=== PATIENT | female | born 1995 | race Two or more races ===

== ENCOUNTER 2020-03-27 15:47 | Inpatient (IN) | payer MEDICAID ==
--- NOTE | 2020-03-27 16:00 | NUR ---
MS RN OPENING NOTES RECEIVED PATIENT FROM AMBULANCE IN A STRETCHER FROM [place], PATIENT WAS RESTLESS, AGITATED, UNCOOPERATIVE, #22G,NO SIGNS OF REDNESS OR INFILTRATION, SIDE RAILS UP FOR SAFETY.
[2020-03-27] MEDS ORDERED: Z GUARD REMEDY 2 OZ OINT TP PRN (17:00)
[2020-03-27] MEDS ORDERED: KETOROLAC TROMETHAMINE INJ 30 MG/ML VIAL IV PRN (17:00)
[2020-03-27] MEDS ORDERED: MAGNESIUM HYDROXIDE 30 ML UDC PO PRN (17:00)
[2020-03-27] MEDS ORDERED: DEXTROSE 50%-WATER 50 ML DISP.SYRIN IV PRN (17:00)
[2020-03-27] MEDS ORDERED: MAG HYDROX/AL HYDROX/SIMETH 30 ML UDC PO PRN (17:00)
[2020-03-27] MEDS ORDERED: ZOLPIDEM TARTRATE 5 MG TABLET PO PRN (17:00)
[2020-03-27] MEDS ORDERED: ACETAMINOPHEN 325 MG TABLET PO PRN (17:00)
[2020-03-27] MEDS: IV NS 0.9% 1,000 ML IV PRN (17:02)
[2020-03-27] MEDS: INSULIN LISPRO/ASPART 100 UNIT/ML CARTRIDGE SQ SCH (17:30)
[2020-03-27] MEDS: BLOOD SUGAR DIAGNOSTIC 1 EACH STRIP IN SCH ×2 (17:45→20:58)
--- NOTE | 2020-03-27 18:27 | NUR ---
MS RN NOTES PATIENT REFUSED LANTUS MEDICATION. SHE VERBALIZED THAT SHE DOESN'T WANT TO EAT.
--- NOTE | 2020-03-27 18:45 | NUR ---
MS RN NOTES PATIENT WAS UNCOOPERATIVE WHEN I WAS TRYING TO INTERVIEW HER FOR HER ADMISSION ASSESSMENT.
--- NOTE | 2020-03-27 19:00 | NUR ---
MS RN CLOSING NOTES [facility]ED [facility], RESTLESS, AGITATED, UNCOOPERATIVE, IVF NS AT 125LPM #22G, INFUSING WELL, NO SIGNS OF REDNESS OR INFILTRATION, SIDE RAILS UP FOR SAFETY.
--- NOTE | 2020-03-27 19:10 | NUR ---
MS/RN OPENING NOTES: RECEIVED PT. IN BED. A/O X3. VERBALLY RESPONSIVE AND ABLE TO MAKE NEEDS KNOWN. NO SOB NOTED. NO S/S OF DISTRESS. NO C/O PAIN AT THIS TIME. PER DAY SHIFT RN AMNA'S REPORT, PT. IS VERY UNCOOPERATIVE DURING ADMISSION. PT. SKIN IS INTACT, ON REGULAR DIET. ABLE TO AMBULATE WITH STEADY GAIT. IV SITE ON THE LEFT HAND #22G INTACT AND PATENT, INFUSING NS @ 125MLS/HR. SAFETY MEASURE IN PLACE. BED IN LOW, LOCKED POSITION WITH SR UP X2. CALL LIGHT WITHIN REACH. WILL CONTINUE TO MONITOR.
[2020-03-27 20:00] VITALS: BP 124/78
[2020-03-27] MEDS: ONDANSETRON HCL/PF 4 MG/2 ML VIAL IVP PRN (20:05)
--- NOTE | 2020-03-27 20:05 | NUR ---
MS/RN NOTES: PT HAD NAUSEA AND VOMITING. EMESIS PRESENT. BROWN COLOR. TOTAL OF 200MLS. CHECKED BLOOD SUGAR LEVELS FIRST, 174. ADMINISTERED 4MG OF ZOFRAN IVP. VSS. WILL CONTINUE TO MONITOR.
--- NOTE | 2020-03-27 20:35 | NUR ---
MS/RN NOTES: PT. STATES SHE FEELS BETTER NOW. "I TASTED THE OCEAN WHEN YOU GAVE THE ZOFRAN". NO EMESIS NOTED. PT STATES SHE DOESN'T FEEL NAUSEATED NOW.
[2020-03-27] MEDS: INSULIN REGULAR, HUMAN 100 UNIT/ML 3 ML VIAL SQ PRN (20:59)
--- NOTE | 2020-03-27 21:03 | NUR ---
MS/RN NOTES: PT. BS CHECK IS 174. REFUSES REG INSULIN 4 UNITS. SAYS "WHY CAN'T YOU UNDERSTAND ME LADY? I FEEL NAUSEOUS RIGHT NOW". INFORMED PT THAT SHE JUST RECEIVED ZOFRAN AT 2004. PT STATES " I WANT TO THROW UP BECAUSE I FEEL GROSS AND I HAVE TO STICK MY FINGER IN MY MOUTH SO I CAN THROW UP". PT. WANTS TO BE LEFT ALONE.
--- NOTE | 2020-03-27 21:16 | NUR ---
MS/RN NOTES: PT. STARTED CALLING RN FOR HELP. WENT TO THE PT'S ROOM TO ATTEND TO NEEDS. PT. STARTED YELLING AT STAFF, STATES "I DON'T WANT ANY MEDICATION. WHAT'S THE POINT OF TAKING ALL OF THIS?" PROCEEDS TO SAY A LOT OF INAPPROPRIATE WORDS TO STAFF AND ACCUSING US OF JUDGING HER. EXPLAINED TO PT WE UNDERSTAND HER PAIN. PT. CONTINUES TO YELL AND WANTS STAFF TO BE OUT OF THE ROOM. WILL CONTINUE TO MONITOR BEHAVIOR.
[2020-03-27] MEDS: INSULIN GLARGINE, 100 UNIT/ML CARTRIDGE SQ SCH (22:00)
--- NOTE | 2020-03-27 22:00 | NUR ---
MS/RN NOTES: PT. REFUSES ACCUCHECK AND INSULIN LANTUS 20 UNITS AT THIS TIME. INFORMED BAOUT RISKS AND BENEFITS 3X. STILL REFUSED. WILL KEEP MONITORING.
[2020-03-28] MEDS: BLOOD SUGAR DIAGNOSTIC 1 EACH STRIP IN SCH ×6 (00:37→20:55)
[2020-03-28] MEDS: INSULIN REGULAR, HUMAN 100 UNIT/ML 3 ML VIAL SQ PRN ×4 (00:41→21:01)
--- NOTE | 2020-03-28 01:20 | NUR ---
MS/RN NOTES: ABLE TO GET PT.'S BLOOD SUGAR CHECK. 181. PT. AGREED TO GET REGULAR INSULIN. ADMINISTERED 4UNITS OF INSULIN PER SLIDING SCALE. PT. ASKED FOR AN ORANGE JUICE. WILL KEEP MONITORING.
--- NOTE | 2020-03-28 01:40 | NUR ---
MS/RN NOTES: UPDATED DR. CHAIREZ ON PT'S NAUSEA AND VOMITING AND PT.'S COMPLAIN OF ZOFRAN NOT HELPING. OBTAINED AN ORDER FOR REGLAN 10MG IVPX1 FOR NAUSEA. WILL CALL PHARMACY TO VERIFY.
[2020-03-28] MEDS: IV NS 0.9% 1,000 ML IV PRN (01:47)
[2020-03-28] MEDS ORDERED: METOCLOPRAMIDE HCL 10 MG/2 ML VIAL IV SCH (02:00)
--- NOTE | 2020-03-28 02:00 | NUR ---
MS/RN NOTES: ASKED PT. IF SHE WANTS TO RECEIVE REGLAN IVP 10MG FOR NAUSEA. PT. DECLINED AND STATED "I DON'T WANT NOTHING AT ALL LADY. I DON'T WANNA GO THROUGH THE NAUSEA AGAIN. I JUST WANNA REST. OR MAYBE DO AN EMERGENCY SURGERY ON ME NOW!!! THESE MEDICATIONS ARE NOT HELPING, MAYBE I NEED SURGERY". PT. IS STABLE FOR NOW. WILL CONTINUE TO MONITOR.
--- NOTE | 2020-03-28 03:19 | NUR ---
MS/RN NOTES: PATIENT IS CURRENTLY IN BED RESTING, NO S/S OF NAUSEA AND VOMITING. WILL KEEP MONITORING.
--- NOTE | 2020-03-28 05:47 | NUR ---
MS/RN NOTES: ATTEMPTED MRSA SWAB AND EDUCATED ABOUT RISKS AND BENEFITS, PT REFUSED MULTIPLE TIMES. PT ALSO REFUSED ACCUCHECK FOR 5AM AND REFUSED LAB DRAW. PER PT "GO AWAY!!! WHAT'S THE POINT OF THIS? LEAVE ME ALONE, I WANNA SLEEP OR I WILL THROW UP!!!!" GILL NET STRINGER, AND ANOTHER RN PRESENT WITNESS AT BEDSIDE. WILL CONTINUE TO MONITOR AND ENDORSE TO DAY SHIFT TO TRY AGAIN LATER.
--- NOTE | 2020-03-28 06:29 | NUR ---
MS/RN NOTES: TEST URINE COLLECTION, PT. REFUSES AT THIS TIME. PER PT "STOP BOTHERING ME, CAN YOU LET ME REST LADY???" WILL ENDORSE TO DAY SHIFT TO TRY AGAIN
--- NOTE | 2020-03-28 06:54 | NUR ---
MS/RN CLOSING NOTES: PT. IN BED. A/O X3-4. NO SIGNIFICANT CHANGES IN CONDITION. ON ROOM AIR. SATURATING WELL. NO SOB NOTED. NO S/S OF DISTRESS. NO C/O PAIN AT THIS TIME. PT. IS VERY UNCOOPERATIVE WITH PLAN OF CARE. REFUSES PAIN MEDS, ANTIEMETICS, BLOOD SUGAR CHECKS AND INSULINS. IV SITE ON THE LEFT HAND #22G INTACT AND PATENT, INFUSING NS @ 125MLS/HR. SAFETY MEASURE IN PLACE. BED IN LOW, LOCKED POSITION WITH SR UP X2. CALL LIGHT WITHIN REACH. WILL ENDORSE TO DAY SHIFT RN FOR JUAN.
[2020-03-28] MEDS: INSULIN LISPRO/ASPART 100 UNIT/ML CARTRIDGE SQ SCH ×3 (07:30→17:22)
--- NOTE | 2020-03-28 07:41 | NUR ---
MS RN NOTES RECEIVED PATIENT IN BED RESTING COMFORTABLY. PATIENT IN NO ACUTE DISTRESS. NO SOB NOTED. PATIENT BREATHING IS EVEN AND UNLABORED. PATIENT BED ALARM IS ON. SAFETY PRECAUTIONS IN PLACE. PATIENT BED IS LOCKED AND IN LOWEST POSITION. CALL LIGHT WITHIN REACH. WILL CONTINUE TO MONITOR.
[2020-03-28 08:00] VITALS: BP 113/76
--- NOTE | 2020-03-28 08:09 | NUR ---
MS RN NOTE PATIENT BLOOD SUGAR IS 158. PATIENT REFUSING TO HAVE SCHEDULED 5 UNITS HUMALOG INSULIN AND REFUSING 2 UNITS REGULAR INSULIN PRN. EDUCATED RISKS VS BENEFITS. PATIENT STATES " I DO NOT WANT INSULIN, LIKE I TOLD THE OTHER NURSE IT MAKES ME FEEL SICK AND NAUSEATED WHEN I GET INSULIN". PATIENT IN NO ACUTE DISTRESS. WILL CONTINUE TO MONITOR.
--- NOTE | 2020-03-28 08:46 | NUR ---
MS RN NOTE PATIENT REFUSING TO HAVE LABS DRAWN THIS AM. PATIENT STATED AND YELLED " CAN YOU JUST LET ME REST, I DONT WANT TO BE BOTHERED. I JUST WANT TO SLEEP WHAT DONT YOU GET". EDUCATED RISK VS BENEFITS. PATIENT CONTINUED TO REFUSE.
[2020-03-28] MEDS ORDERED: CEFTRIAXONE 1 G in IV D5W 50 ML IV SCH (10:00)
[2020-03-28] MEDS ORDERED: CEFTRIAXONE 2 G in IV D5W 100 ML IV SCH (10:00)
--- NOTE | 2020-03-28 11:00 | NUR ---
MS RN NOTE PATIENT REFUSING TO DO MRSA SWAB AND COMPLY TO GIVE URINE SAMPLE FOR TEST. EDUCATED RISKS VS BENEFITS. PATIENT YELLED AND STATED " NO PLEASE I DONT WANT TO DO THAT IM TIRED OF YOU GUYS ASKING". PATIENT CONTINUED TO REFUSE.
--- NOTE | 2020-03-28 11:17 | NUR ---
MS RN NOTE PATIENT FEELING NAUSEAS BUT REFUSING ANY FORM OF ANTI NAUSEA MEDICATIONS PRN. EDUCATED RISKS VS BENEFITS. PATIENT CONTINUES TO REFUSE.
[2020-03-28 11:34] LABS: BASOPHILS # (AUTO) 0.1 /CMM (0.0-0.2); BASOPHILS % (AUTO) 1.2 % (0.0-2.0); EOSINOPHILS % (AUTO) 2.2 % (0.0-6.0); HEMATOCRIT 39 % (33-45); HEMOGLOBIN 13.4 g/dL (11.5-14.8); MEAN CORPUSCULAR HGB CONC 34 g/dl (31.0-36.0); MEAN CORPUSCULAR VOLUME 92 fL (82-100); MONOCYTES # (AUTO) 0.3 /CMM (0.1-1.30); MONOCYTES % (AUTO) 5.4 % (2.0-12.0); NEUTROPHILS # (AUTO) 2.3 /CMM (1.8-8.9); NEUTROPHILS % (AUTO) 48.2 % (43.0-81.0); PLATELET COUNT (AUTO) 309 /CMM (150-450); RED BLOOD CELL COUNT(AUTO) 4.24 MIL/uL (4.0-5.2); WHITE BLOOD COUNT (AUTO) 4.7 K/uL (4.3-11.0)
[2020-03-28 11:49] LABS: CALCIUM, SERUM 8.4 mg/dL (8.5-10.1); CREATININE 0.4 mg/dL (0.6-1.3); MAGNESIUM 1.7 mg/dL (1.8-2.4); PHOSPHORUS 3.6 mg/dL (2.5-4.9); POTASSIUM 3.3 mmol/L (3.5-5.1)
[2020-03-28] MEDS ORDERED: HALOPERIDOL LACTATE INJ 5 MG/ML VIAL IM ONE (12:30)
[2020-03-28] MEDS ORDERED: OLANZAPINE 10 MG VIAL IM ONE (12:30)
[2020-03-28] MEDS ORDERED: OLANZAPINE 5 MG/TAB.RAPDIS PO PRN (12:30)
--- NOTE | 2020-03-28 12:33 | NUR ---
MS RN NOTE PATIENT IS YELLING AND SCREAMING AT STAFF. DR. DOBBINS WENT TO SEE AND EVALUATED PATIENT. PATIENT YELLED AND STATED " FUCK YOU, GET OUT OF HERE YOUR NOT HELPFUL, NOTHING IS HELPFUL". BYRON JOHNSON SEEN AND EVALUATED PATIENT. EDUCATED RISKS AND BENEFITS IN COMPLIANCE TO PLAN OF CARE. PATIENT CONTINUES TO YELL AND SCREAM AT STAFF DESPITE US TRYING TO HELP HER.
--- NOTE | 2020-03-28 12:53 | NUR ---
MS RN NOTE PATIENT BLOOD SUGAR IS 191. PATIENT REFUSING TO HAVE SCHEDULED 5 UNITS HUMALOG INSULIN AND REFUSING 4 UNITS REGULAR INSULIN PRN. EDUCATED RISKS VS BENEFITS. STATED IMPORTANCE OF COMPIANCE. PATIENT STATES " I DO NOT WANT INSULIN, I TOLD YOU THIS. IT MAKES ME FEEL WORST I WANT TO GET BETTER NOW". EDUCATED MEDICATION ADMINISTRATION. PATIENT CONTINUES TO REFUSE. PATIENT IN NO ACUTE DISTRESS. WILL CONTINUE TO MONITOR.
[2020-03-28] MEDS: Magnesium 1GM/D5W 100ML PREMIX 100 ML IV SCH ×2 (13:16→14:47)
[2020-03-28] MEDS: MEROPENEM 1 G in IV NS 0.9% 100 ML IV SCH ×2 (14:17→20:52)
[2020-03-28] MEDS: Potassium Chloride 20 MEQ in IV NS 0.9% 1,000 ML IV PRN (14:17)
--- NOTE | 2020-03-28 17:25 | NUR ---
MS RN NOTE ATTEMPTED TO OBTAIN BLOOD SUGAR FROM PATIENT. PATIENT REFUSED 1700 BLOOD SUGAR CHECK AND AFTERNOON VITAL SIGNS. PATIENT GETS ANGRY AND STATES " GET OUT CANT YOU TELL, IM NOT DOING WELL. I JUST WANT TO SLEEP WITHOUT EVERYONE BOTHERING ME. YOU GUYS ARE SO ANNOYING. I DONT WANT ANY MEDICATIONS OR FOR YOU TO CHECK MY BLOOD SUGAR". SINCE I CAN NOT CHECK BLOOD SUGAR SINCE PATIENT REFUSED, PATIENT IS ALSO REFUSING 5 UNITS HUMALOG INSULIN. PATIENT STATED SHE IS NAUSEAS. OFFERED ANTINAUSEA MEDICATION PRN BUT PATIENT REFUSED AND STATED SHE DOES NOT WANT ANY MEDICATION FOR NAUSEA. EDUCATED RISKS VS BENEFITS. PATIENT CONTINUED TO REFUSE.
--- NOTE | 2020-03-28 18:21 | NUR ---
MS RN NOTE PATIENT REFUSING TO ASSIST ME OBTAINING HER HEIGHT TO INPUT IN HER CHART. PATIENT STATES " I JUST WOULD LIKE TO REST RIGHT NOW AND NOT BE BOTHERED". EDUCATED IMPORTANCE TO OBTAIN INFORMATION. PATIENT CONTINUED TO REFUSE. WILL ENDORSE TO NEXT SHIFT TO ATTEMPT.
--- NOTE | 2020-03-28 19:10 | NUR ---
MS RN CLOSING NOTES PATIENT IN BED RESTING COMFORTABLY. PATIENT IN NO ACUTE DISTRESS. NO SOB NOTED. PATIENT BREATHING IS EVEN AND UNLABORED. PATIENT KEPT CLEAN AND DRY MUCH PATIENT WOULD ALLOW US TO HELP. PATIENT HAS BEEN NONCOMPLIANT WITH PLAN OF CARE THROUGHOUT SHIFT DESPITE EDUCATION OF RISKS VS BENEFITS. PATIENT BED ALARM IS ON. SAFETY PRECAUTIONS IN PLACE. PATIENT BED IS LOCKED AND IN LOWEST POSITION. CALL LIGHT WITHIN REACH. WILL ENDORSE CARE TO PM SHIFT FOR JUAN.
--- NOTE | 2020-03-28 19:20 | NUR ---
MS/RN OPENING NOTES: RECEIVED PT. IN BED RESTING COMFORTABLY. A/O X3. VERBALLY RESPONSIVE AND ABLE TO MAKE NEEDS KNOWN. NO SOB NOTED. NO S/S OF DISTRESS. NO C/O PAIN AT THIS TIME. PT. IS VERY UNCOOPERATIVE DURING ADMISSION. PT. SKIN IS INTACT, ON REGULAR DIET. ABLE TO AMBULATE WITH STEADY GAIT. IV SITE ON THE LEFT HAND #22G INTACT AND PATENT, INFUSING K+CL 20 MEQ @ 100MLS/HR. SAFETY MEASURES IN PLACE. BED IN LOW, LOCKED POSITION WITH SR UP X2. BED ALARM ON. CALL LIGHT WITHIN REACH. WILL CONTINUE TO MONITOR.
[2020-03-28 20:00] VITALS: BP 140/82
--- NOTE | 2020-03-28 21:02 | NUR ---
MS/RN NOTES: PT.'S BLOOD SUGAR CHECK IS 170. PT REFUSES REGULAR INSULIN 4 UNITS. AND REFUSES INSULIN LANTUS 20U. EXPLAINED TO PT ABOUT RISKS AND BENEFITS X3. PT STILL REFUSED. WILL CONTINUE TO MONITOR.
[2020-03-28] MEDS: INSULIN GLARGINE, 100 UNIT/ML CARTRIDGE SQ SCH (21:40)
[2020-03-29] MEDS: BLOOD SUGAR DIAGNOSTIC 1 EACH STRIP IN SCH ×6 (01:00→21:00)
--- NOTE | 2020-03-29 01:00 | NUR ---
MS/RN NOTES: PT REFUSES ACCUCHECK. EXPLAINED TO PT ABOUT RISKS AND BENEFITS X3. PT STILL REFUSED. WILL CONTINUE TO MONITOR.
[2020-03-29] MEDS: Potassium Chloride 20 MEQ in IV NS 0.9% 1,000 ML IV PRN ×2 (01:56→14:30)
--- NOTE | 2020-03-29 04:57 | NUR ---
MS/RN NOTES: PT REFUSES ACCUCHECK. EXPLAINED TO PT ABOUT RISKS AND BENEFITS X3. PT STILL REFUSED. WILL CONTINUE TO MONITOR.
[2020-03-29] MEDS: MEROPENEM 1 G in IV NS 0.9% 100 ML IV SCH ×3 (05:01→21:41)
--- NOTE | 2020-03-29 06:00 | NUR ---
MS/RN NOTES: CUSTOMER PROGRAM MANAGER ENOC CAME TO DRAW BLOOD. PT. REFUSED DESPITE EXPLANATION OF RISKS AND BENEFITS. STILL NONCOMPLIANT. MD'S AWARE OF BEHAVIOR OF PATIENT. WILL CONTINUE TO MONITOR.
--- NOTE | 2020-03-29 06:46 | NUR ---
MS/RN NOTES: ER NURSE FROM [facility] (MALLY) CALLED REGARDING PT.'S URINE CULTURE RESULTING POSITIVE, MORE THAN 100,000 E COLI. CHARGE NURSE AWARE. WILL ENDORSE TO DAY SHIFT NURSE TO RELAY TO [facility] SENIOR CONSTRUCTION MANAGER DOCTOR.
--- NOTE | 2020-03-29 06:48 | NUR ---
MS/RN NOTES: PT. REFUSING ACCUCHECK. NON COMPLIANT. INFORMED ABOUT RISKS AND BENEFITS. STILL REFUSED. WILL CONTINUE TO MONITOR.
[2020-03-29] MEDS: INSULIN LISPRO/ASPART 100 UNIT/ML CARTRIDGE SQ SCH ×3 (07:30→17:04)
--- NOTE | 2020-03-29 07:34 | NUR ---
MS/RN CLOSING NOTES: PATIENT IN BED SLEEPING. PATIENT IN NO ACUTE DISTRESS. NO SOB NOTED. PATIENT BREATHING IS EVEN AND UNLABORED. NO COMPLAINS OF PAIN AT THIS TIME. NEEDS ATTENDED MUCH PATIENT WOULD ALLOW US TO HELP. PATIENT HAS BEEN NONCOMPLIANT WITH PLAN OF CARE THROUGHOUT THE SHIFT DESPITE EDUCATION OF RISKS AND BENEFITS. REFUSED ACCUCHECKS, DUE MEDICATIONS, AND LAB DRAWS. PATIENT BED ALARM IS ON. SAFETY PRECAUTIONS IN PLACE. PATIENT BED IS LOCKED AND IN LOWEST POSITION. CALL LIGHT WITHIN REACH. INFORMED RN ABOUT THE RESULTS FROM [facility] ABOUT URINE CULTURE. WILL ENDORSE CARE TO AM SHIFT NURSE FOR JUAN.
--- NOTE | 2020-03-29 08:00 | NUR ---
MS RN OPENING NOTES RECEIVED PATIENT IN BED SLEEPING IN BED. NO CARDIAC OR RESP DISTRESS NOTED. NO SOB NOTED. PATIENT BREATHING IS EVEN AND UNLABORED. SATURATING WELL ON ROOM AIR AT 98%. IV ACCESS NOTED ON L HAND G22. INTACT AND PATENT AND FLUSHING WELL. NO S/S OF INFECTION OR INFILTRATION NOTED. SAFETY PRECAUTIONS IN PLACE, PATIENT BED IS LOCKED AND IN LOWEST POSITION. CALL LIGHT WITHIN REACH. WILL CONT TO MONITOR.
--- NOTE | 2020-03-29 08:15 | NUR ---
REFUSED BREAKFAST/AGITATION PT REFUSED TO EAT BREAKFAST. SHE STATED THAT SHE IS NAUSEATED AND FEELS LIKE VOMITING. I OFFERED HER ZOFRAN IV PRN AND ZYDIS PRN THAT SHE CAN TAKE TO HELP WITH THE NAUSEA, HOWEVER, SHE YELLS AND SCREAMS AT ME AND WAS VERY AGITATED FOR SOME REASON EVEN THOUGH I WAS JUST ASKING HER IF SHE WOULD LIKE TO TAKE IT. SHE STATES, "WHY CANT YOU BITCHES UNDERSTAND?! I TOLD YOU, NONE OF THAT SHIT WORKS!. YOU PEOPLE ARE USELESS!."
[2020-03-29] MEDS ORDERED: ARIPIPRAZOLE 5 MG TABLET PO SCH (09:00)
--- NOTE | 2020-03-29 09:00 | NUR ---
REFUSED INSULIN AND ACCUCHECKS PT REFUSED FOR BS CHECKS THIS AM. ALSO REFUSED ACCU CHECK. EDUCATED PT REGARDING RISKS, CONSEQUENCES AND NEGATIVE OUTCOMES OF NON COMPLIANT BEHAVIORS. PT REPLIED 'LEAVE ME ALONE'.
[2020-03-29 09:20] VITALS: BP 122/69
[2020-03-29] MEDS: MORPHINE SULFATE INJ 2 MG/ML DISP.SYRIN IV PRN (10:08)
--- NOTE | 2020-03-29 11:00 | NUR ---
C/O L FLANK PAIN PT C/O L FLANK PAIN 06/21. AT FIRST SHE REQUESTED FOR PAIN MEDS, SO THEN I WENT TO GET IT, BUT WHEN I CAME BACK, SHE CHANGED HER MIND, STATING, "NO NEVERMIND. IM SCARED THAT WILL MAKE ME NAUSEOUS AGAIN." MORPHINE WASTED WITH ANOTHER RN.
--- NOTE | 2020-03-29 11:30 | NUR ---
SEEN BY DR. JOHNSON PT WAS SEEN BY DR. JOHNSON. PT WAS VERY AGITATED, YELLING AND SCREAMING AT MD AND NURSE. SHE STATES THAT SHE HAS N/V BUT SHE DOESNT WANT TO TAKE HER PRN ZOFRAN VIA IV. SHE STATES THAT IT MAKES HER MORE NAUSEOUS. SHE ALSO REQUESTED MD, THAT SHE WANTS SOMETHING HELP HER SLEEP AND RELAX. PER MD HE WILL ORDER ATIVAN AND HALDOL. MD ALSO ORDERED IV PROTONIX.
[2020-03-29] MEDS ORDERED: HALOPERIDOL LACTATE INJ 5 MG/ML VIAL IV ONE (12:00)
--- NOTE | 2020-03-29 12:00 | NUR ---
REFUSED INSULIN/ACCUCHECKS PT REFUSED INSULIN/ACCUCHECKS ONCE AGAIN, SHE YELLED AND SCREAMED AT ME WHEN I OOFERED IT. I TRIED TO EXPLAIN THE IMPORTANCE OF THESE INTERVENTIONS TO HELP HER GET BETTER. HOEVER, SHE STILL REFUSES.
[2020-03-29] MEDS: PANTOPRAZOLE 40 MG VIAL IV SCH (12:01)
[2020-03-29] MEDS: LORAZEPAM INJ 2 MG/ML VIAL IV PRN (12:01)
--- NOTE | 2020-03-29 13:45 | NUR ---
F/U FOR UACS ASKED DR. JOHNSON IF HE WOULD LIKE TO ORDER UACS. PER DR. JOHNSON NOT NEEDED. SINCE SHE IS ALREADY ON ATB. NOTIFIED DR. JOHNSON OF >100,000 COLONIES OF E.COLI IN PTS URINE CULTURE DONE AT [facility]. PER MD SINGH.
[2020-03-29 14:52] LABS: BASOPHILS # (AUTO) 0.1 /CMM (0.0-0.2); EOSINOPHILS % (AUTO) 0.6 % (0.0-6.0); HEMATOCRIT 41 % (33-45); HEMOGLOBIN 14.1 g/dL (11.5-14.8); LYMPHOCYTES # (AUTO) 1.8 /CMM (0.8-4.8); MEAN CORPUSCULAR HGB CONC 34 g/dl (31.0-36.0); MEAN CORPUSCULAR VOLUME 93 fL (82-100); MONOCYTES # (AUTO) 0.3 /CMM (0.1-1.30); MONOCYTES % (AUTO) 5.2 % (2.0-12.0); NEUTROPHILS # (AUTO) 4.4 /CMM (1.8-8.9); NEUTROPHILS % (AUTO) 66.2 % (43.0-81.0); PLATELET COUNT (AUTO) 283 /CMM (150-450); RED BLOOD CELL COUNT(AUTO) 4.46 MIL/uL (4.0-5.2); WHITE BLOOD COUNT (AUTO) 6.7 K/uL (4.3-11.0)
[2020-03-29 15:08] LABS: CALCIUM, SERUM 8.5 mg/dL (8.5-10.1); CREATININE 0.5 mg/dL (0.6-1.3); MAGNESIUM 1.7 mg/dL (1.8-2.4); POTASSIUM 4.2 mmol/L (3.5-5.1)
--- NOTE | 2020-03-29 17:01 | NUR ---
REFUSED ACCUCHECK/INSULIN PT REFUSING ACCUCHECK AND INSULIN ONCE AGAIN. I WOKE HER UP, TO LET HER KNOW ITS TIME FOR HER BS CHECKS AND INSULIN. PT GOT UPSET, YELLED AND SCREAMED AGAIN. SHE TOLD ME, "WTF!!! CANT YOU JUST LEAVE ME ALONE! IM TRYING TO FUCKIN' SLEEP!" EDUCATED PT RE: RISKS, CONSEQUENCES AND NEGATIVE OUTCOMES OF NON COMPLIANT BEHAVIORS. SHE REPLIED, "GET OUT OF HERE, WITH YOUR BULLSHIT!"
--- NOTE | 2020-03-29 17:30 | NUR ---
HOME MEDS PER PT, HER ONLY HOME MED IS METFORMIN, BUT STATES THAT SHE CANT REMEMBER THE DOSE AND THAT SHE IS SUPPOSED TO TAKE IT TWICE A DAY AT HOME BUT DOESNT REALLY GET TO FOLLOW THAT. I ASKED IF ANYBODY COULD BRINGF HER MEDS IN, SHE SAYS , "NO MAAM. I LIVE BY MYSELF. NOBODY'S GONNA BRING THAT SHIT HERE."
[2020-03-29] MEDS ORDERED: METF500T20 PO (17:38)
--- NOTE | 2020-03-29 17:45 | NUR ---
MENSTRUAL PERIOD PT STARTED HER MENSTRUAL PERIOD. PROVIDED PT WITH PADS.
--- NOTE | 2020-03-29 18:13 | NUR ---
MS RN CLOSING NOTES RECEIVED PATIENT IN BED SLEEPING IN BED. AROUSABLE. NO CARDIAC OR RESP DISTRESS NOTED. NO SOB NOTED. PATIENT BREATHING IS EVEN AND UNLABORED. SATURATING WELL ON ROOM AIR AT 98%. IV ACCESS NOTED ON L HAND G22. INTACT AND PATENT AND FLUSHING WELL. NO S/S OF INFECTION OR INFILTRATION NOTED. PT STARTED HER MENSTRUAL PERIOD TODAY. PROVIDED PADS. PT IS MUCH MORE CALM, SHE IS SLEEPING. SHE TOLD ME THAT HER NAUSEA IMPROVED AFTER WHAT DR. JOHNSON HAD ORDERED FOR HER. SAFETY PRECAUTIONS IN PLACE, PATIENT BED IS LOCKED AND IN LOWEST POSITION. CALL LIGHT WITHIN REACH. WILL ENDORSE TO NEXT SHIFT.
--- NOTE | 2020-03-29 19:43 | NUR ---
MS RN OPENING NOTES PATIENT SLEEPING IN BED, EASY TO AWAKEN. A/OX4, ABLE TO VERBALIZE NEEDS. STABLE ON RA. IV PRESENT ON LEFT HAND, SIZE 22, INTACT & PATENT WITH KCL 20 MEQ RUNNING AT 100ML/HR. SAFETY MEASURES IN PLACE AND PATIENT'S NEEDS MET. BED LOCKED, SIDE RAILS X2, CALL LIGHT WITHIN REACH. WILL CONTINUE TO MONITOR.
[2020-03-29 20:00] VITALS: BP 115/83
[2020-03-29] MEDS: INSULIN GLARGINE, 100 UNIT/ML CARTRIDGE SQ SCH (22:00)
--- NOTE | 2020-03-29 22:00 | NUR ---
MS RN NOTES PATIENT REFUSED ACCUCHECK AT THIS TIME. PATIENT STATED "NO, GO AWAY. I'M SLEEPING"
[2020-03-30] MEDS: BLOOD SUGAR DIAGNOSTIC 1 EACH STRIP IN SCH ×6 (01:24→22:18)
--- NOTE | 2020-03-30 05:25 | NUR ---
MS RN NOTES PATIENT REFUSED AM LABS AT THIS TIME. PATIENT STATED SHE WILL AGREE TO DRAW LABS AFTER BREAKFAST. WILL ENDORSE TO DAY SHIFT RN TO FOLLOW UP WITH LAB.
[2020-03-30] MEDS: MEROPENEM 1 G in IV NS 0.9% 100 ML IV SCH ×3 (05:34→22:18)
--- NOTE | 2020-03-30 05:38 | NUR ---
MS RN NOTES PATIENT REFUSED ACCUCHECK AT THIS TIME. PATIENT STATED "NO, STOP BUGGING ME".
--- NOTE | 2020-03-30 06:57 | NUR ---
MS RN CLOSING NOTES PATIENT SLEEPING IN BED, EASY TO AWAKEN. A/OX4. STABLE ON RA. NO S/S OF ACUTE RESPIRATORY DISTRESS OR C/O PAIN. IV PRESENT ON LEFT HAND, SIZE 22, INTACT & PATENT WITH KCL 20 MEQ RUNNING AT 100ML/HR. SAFETY MEASURES IN PLACE AND PATIENT'S NEEDS MET. BED LOCKED, SIDE RAILS X2, CALL LIGHT WITHIN REACH. WILL ENDORSE TO DAY SHIFT NURSE PLAN OF CARE.
[2020-03-30] MEDS: INSULIN LISPRO/ASPART 100 UNIT/ML CARTRIDGE SQ SCH ×3 (07:30→16:49)
--- NOTE | 2020-03-30 08:14 | NUR ---
MS RN NOTE PATIENT IS REFUSING BLOOD SUGAR CHECKS AND INSULIN HUMALOG 5 UNITS ORDERED THIS AM. AND THEREFORE CAN NOT ADMINISTER INSULIN ORDERED. EDUCATED RISKS VS BENEFITS. PATIENT CONTINUED TO REFUSE AND STATED "PLEASE LET ME GET SOME SLEEP AND LEAVE".
--- NOTE | 2020-03-30 08:37 | NUR ---
MS RN NOTE PATIENT REFUSING AM LABS AND REFUSING VITALS SIGNS FOR THE AM. EDUCATED PATIENT ON IMPORTANCE TO COMPLIANCE IN PLAN OF CARE. PATIENT CONTINUED TO REFUSE.
[2020-03-30] MEDS: Potassium Chloride 20 MEQ in IV NS 0.9% 1,000 ML IV PRN (12:09)
[2020-03-30] MEDS: PANTOPRAZOLE 40 MG VIAL IV SCH (12:10)
[2020-03-30] MEDS: INSULIN REGULAR, HUMAN 100 UNIT/ML 3 ML VIAL SQ PRN ×2 (12:11→16:50)
[2020-03-30] MEDS: ONDANSETRON HCL/PF 4 MG/2 ML VIAL IVP PRN (12:12)
--- NOTE | 2020-03-30 12:12 | NUR ---
MS RN NOTE PATIENT BLOOD SUGAR IS 181. PATIENT REFUSING TO HAVE SCHEDULED 5 UNITS HUMALOG INSULIN AND REFUSING 4 UNITS REGULAR INSULIN PRN. EDUCATED RISKS VS BENEFITS. STATED IMPORTANCE OF COMPIANCE. PATIENT STATES " I DO NOT WANT INSULIN, IT DOES NOT MAKE ME FEEL GOOD". EDUCATED MEDICATION ADMINISTRATION. PATIENT CONTINUES TO REFUSE. PATIENT IN NO ACUTE DISTRESS. WILL CONTINUE TO MONITOR.
--- NOTE | 2020-03-30 13:36 | NUR ---
MS RN NOTE PATIENT IS YELLING AT STAFF AND BECOMING AGITATED AT STAFF. PATIENT STATES "MAKE ME BETTER RIGHT AWAY. I DONT LIKE IT HERE AND EVERYTHING SUCKS. FUCK YOU GUYS I WANT TO BE BETTER ALREADY". I APPROACHED THE PATIENT CALMLY AND EDUCATED THE IMPORTANCE IN COMPLIANCE WITH PLAN OF CARE. PATIENT STATED "YOUR MAKING MY CHEST HURT AND MAKING ME FEEL MORE NAUSEATED". I OFFERED PAIN MEDICATIONS BUT PATIENT IS REFUSING ANY MEDICATIONS. EDUCATED RISKS VS BENEFITS. BYRON JOHNSON MADE AWARE. PATIENT CONTINUES TO REFUSE.
[2020-03-30 15:28] VITALS: BP 117/70
[2020-03-30] MEDS: MORPHINE SULFATE INJ 2 MG/ML DISP.SYRIN IV PRN (15:32)
[2020-03-30 16:43] VITALS: BP 123/86
--- NOTE | 2020-03-30 16:50 | NUR ---
MS RN NOTE PATIENT BLOOD SUGAR IS 157. PATIENT REFUSING TO HAVE SCHEDULED 5 UNITS HUMALOG INSULIN AND REFUSING 2 UNITS REGULAR INSULIN PRN. EDUCATED RISKS VS BENEFITS. STATED IMPORTANCE OF COMPLIANCE. PATIENT STATES " I DO NOT WANT INSULIN". EDUCATED MEDICATION ADMINISTRATION. PATIENT CONTINUES TO REFUSE. PATIENT IN NO ACUTE DISTRESS. WILL CONTINUE TO MONITOR.
[2020-03-30] MEDS: LORAZEPAM INJ 2 MG/ML VIAL IV PRN (17:01)
--- NOTE | 2020-03-30 17:03 | NUR ---
MS RN NOTE PATIENT STATING ANXIOUSNESS AND IS GETTING RESTLESS. ATIVAN PRN ORDERED GIVEN.
[2020-03-30] MEDS ORDERED: HALOPERIDOL LACTATE INJ 5 MG/ML VIAL IV ONE (18:00)
[2020-03-30 20:00] VITALS: BP 102/65
--- NOTE | 2020-03-30 20:00 | NUR ---
MS/RN OPENING NOTES RECEIVED PATIENT RESTING IN BED, ASLEEP BUT ABLE TO AWAKEN, PATIENT ABLE TO MAKE NEEDS KNOWN AND COOPERATIVE TO CARE, REQUESTED FOR SOME JUICES.AND ABLE TO COOPERATE WITH IV FLUIDS AND UNDERSTOOD IMPORTANCE OF ANTIBIOTIC, ALLOWS TO HAVE BLOOD SUGAR CHECK BUT REFUSE TO BE POKED WITH NEEDLE FOR INSULIN . REQUESTED TO HAVE MEDICATION LATER PATIENT WANTS TO SLEEP AND NOT BE DISTURBED. BED LOCKED, CALL LIGHTS WITHIN REACH. WILL MONITOR.IV SITE ON LEFT HAND PATENT AND WITH NO S/S OF INFILTRATION. PATIENT AMBULATORY AND ABLE TO DO SOME SELF CARE WITH ASSIST.
[2020-03-30] MEDS: INSULIN GLARGINE, 100 UNIT/ML CARTRIDGE SQ SCH (22:00)
--- NOTE | 2020-03-30 22:00 | NUR ---
MS/RN NOTES PATIENT REQUESTED FOR SOME JUICES, TOLERATED BUT WITH OCCASIONAL VOMITING EPISODE HOWEVER REFUSE TO HAVE ZOFRAN. PREFERS TO THROW UP AND THEN ABLE TO RELIEVE AFTERWARDS.
--- NOTE | 2020-03-30 22:22 | NUR ---
BS AT 131 HAD SOME CRANBERRY JUICE AND ATE SOME SNACKS.
[2020-03-30 23:03] LABS: BASOPHILS # (AUTO) 0.1 /CMM (0.0-0.2); BASOPHILS % (AUTO) 1.2 % (0.0-2.0); EOSINOPHILS % (AUTO) 1.1 % (0.0-6.0); HEMATOCRIT 40 % (33-45); HEMOGLOBIN 13.7 g/dL (11.5-14.8); LYMPHOCYTES # (AUTO) 2.6 /CMM (0.8-4.8); MEAN CORPUSCULAR HGB CONC 34 g/dl (31.0-36.0); MEAN CORPUSCULAR VOLUME 92 fL (82-100); MONOCYTES # (AUTO) 0.4 /CMM (0.1-1.30); MONOCYTES % (AUTO) 6.7 % (2.0-12.0); NEUTROPHILS # (AUTO) 2.6 /CMM (1.8-8.9); PLATELET COUNT (AUTO) 260 /CMM (150-450); RED BLOOD CELL COUNT(AUTO) 4.36 MIL/uL (4.0-5.2); WHITE BLOOD COUNT (AUTO) 5.7 K/uL (4.3-11.0)
[2020-03-30 23:21] LABS: CALCIUM, SERUM 8.6 mg/dL (8.5-10.1); CREATININE 0.6 mg/dL (0.6-1.3); MAGNESIUM 1.5 mg/dL (1.8-2.4); PHOSPHORUS 3.7 mg/dL (2.5-4.9); POTASSIUM 4.2 mmol/L (3.5-5.1)
[2020-03-31] MEDS: BLOOD SUGAR DIAGNOSTIC 1 EACH STRIP IN SCH ×6 (00:15→21:06)
--- NOTE | 2020-03-31 00:15 | NUR ---
MS/RN NOTES PATIENT BLOOD SUGAR CHECK EARLIER AND REFUSE TO HAVE ANOTHER ONE AT THIS TIME, WOULD LIKE TO HAVE IT AT IN AM. LEEP AND HAVE BEHAVIOR CHANGES BUT CONTROLLED.
--- NOTE | 2020-03-31 03:16 | NUR ---
MS/RN NOTES MD SCHOFIELD MADE AWARE REGARDING LATEST LOW MAGNESIUM LEVEL AT 1.5.
[2020-03-31] MEDS: Potassium Chloride 20 MEQ in IV NS 0.9% 1,000 ML IV PRN (03:41)
--- NOTE | 2020-03-31 03:47 | NUR ---
MS/RN NOTES RECEIVED ORDER FROM MD SCHOFIELD TO REPLACE LOW MAGNESIUM LEVEL OF 1.5 WITH ORDER TO GIVE 3 G MAG.
[2020-03-31] MEDS ORDERED: Magnesium 1GM/D5W 100ML PREMIX PIGGYBACK IV ONE (04:00)
--- NOTE | 2020-03-31 04:07 | NUR ---
MS/RN NOTED MAGNESIUM BAG NO. 1 INFUSING.
--- NOTE | 2020-03-31 05:07 | NUR ---
MS/RN NOTES MAGNESIUM 2ND BAG 1G INFUSING.
--- NOTE | 2020-03-31 05:53 | NUR ---
MS/RN NOTES MAGNESIUM 3RD BAG INFUSING
--- NOTE | 2020-03-31 05:57 | NUR ---
MS/RN NOTES PATIENT REFUSE TO HAVE BLOOD SUGAR BE TAKEN AT THIS TIME, TO FOLLOW UP .
[2020-03-31] MEDS: MEROPENEM 1 G in IV NS 0.9% 100 ML IV SCH ×3 (06:15→21:00)
--- NOTE | 2020-03-31 06:17 | NUR ---
MS/RN NOTES PATIENT STILL REFUSE TO HAVE BLOOD SUGAR BE TAKEN SHE WENT BACK TO SLEEP AND COVER HER SELF.
--- NOTE | 2020-03-31 06:34 | NUR ---
306-1MS/RN CLOSING NOTES PATIENT ABLE TO SLEEP DURING THE NIGHT, IV ANTIBIOTIC ADMINISTERED. MONITORED FOR ANY CHANGES. KEPT COMFORTABLE, MONITORED S/S OF HYPO/HYPERGLYCEMIA WITH BEHAVIOR OF NON COMPLIANCE IN DIABETES MANAGEMENT. ON NASAL CANULA. IV SITE PATENT. BED LOCKED, CALL LIGHTS WITHIN REACH,
--- NOTE | 2020-03-31 07:00 | NUR ---
MS RN OPENING NOTES RECEIVED PT RESTING IN BED, EASILY AWAKE, AO X3. PT ABLE TO VERBALIZE NEEDS. NO SOB NOTED. NO S/S OF ANY ACUTE DISTRESS NOTED. RESPIRATIONS ARE EVEN AND UNLABORED WITH EQUAL RISE AND FALL IN CHEST. IV ACCESS TO RAC G#22, INTACT, PATENT AND INFUSING [id number]@100ML/HR. BED IN LOWEST LOCKED, SIDE RAILS UP, BED ALARM ON, HOB ELEVATED TO SEMI FOWLERS POSITION, CALL LIGHTS WITHIN REACH. WILL MONITOR CONTINUE TO MONITOR
[2020-03-31 08:00] VITALS: BP 119/70
--- NOTE | 2020-03-31 09:51 | NUR ---
PT REFUSED BS CHECK THIS MORNING. PT EDUCATION WAS PROVIDED. PT VERBALIZED UNDERSTANDING. WILL CONTINUE TO MONITOR
--- NOTE | 2020-03-31 11:20 | NUR ---
PT WAS FOUND SELF INDUCING VOMIT. PT VOMITED LIGHT BROWN EMESIS OF 300ML. PT REFUSED ZOFRAN. PT EDUCATION PROVIDED. CHARGE NURSE AND DR JOHNSON MADE AWARE
[2020-03-31] MEDS: PANTOPRAZOLE 40 MG VIAL IV SCH (11:50)
[2020-03-31] MEDS: INSULIN LISPRO/ASPART 100 UNIT/ML CARTRIDGE SQ SCH ×2 (12:00→18:09)
--- NOTE | 2020-03-31 12:03 | NUR ---
PT NOT COMPLAINT WITH GLUCOSE TEST CHECK. AT THIS TIME, PT REQUESTED GLUCOSE TEST CHECK. BS IS 178. WILL CONTINUE CARE PER ORDER AND CONTINUE TO MONITOR
--- NOTE | 2020-03-31 12:06 | NUR ---
BS SUGAR 178, PT REFUSED COVERAGE. EDUCATION PROVIDED. PT VERBALIZE UNDERSTANDING. WILL CONTINUE TO MONITOR
--- NOTE | 2020-03-31 13:20 | NUR ---
PT REQUESTED TO BE DISCONNECTED FROM IVs FLUIDS (MERREM). PT STATED " I DO NOT WANT MEDS, CARE OR TREAMENT PROVIDED". PT EDUCATION PROVIDED. PT CONTINUED TO REFUSE CARE. CHARGE NURSE WAS MADE HERNANDEZ AND DR JOHNSON WAS MADE AWARE.
[2020-03-31 16:00] VITALS: BP 131/64
[2020-03-31] MEDS ORDERED: HALOPERIDOL LACTATE INJ 5 MG/ML VIAL IV ONE (16:00)
[2020-03-31] MEDS: MORPHINE SULFATE INJ 2 MG/ML DISP.SYRIN IV PRN (16:11)
[2020-03-31] MEDS: LORAZEPAM INJ 2 MG/ML VIAL IV PRN (16:15)
--- NOTE | 2020-03-31 16:20 | NUR ---
PT PLACED BLANKETS AND A PILLOW IN THE BATHROOM AND WAS SLEEPING ON. PT STATED "I AM ANXIOUS, FEEL COLD SLEEPING ON THE BED. DR JOHNSON MADE AWARE. PER DR JOHNSON, ADMINISTER MORPHINE AND ATIVAN. WHEN PT FALLS ASLEEP, ADMINISTER HALDOL. ORDERS CARRIED OUT. WILL CONTINUE TO MONITOR
--- NOTE | 2020-03-31 16:30 | NUR ---
PER DR JOHNSON ORDER, ADMINISTER HALDOL LACTATE INJ, 2.5MG IV ONCE WHEN PT IS ASLEEP. MEDICATION NOT ADMINISTERED DUE TO PATIENT BEING AWAKE. WILL CONTINUE TO MONITOR
--- NOTE | 2020-03-31 19:00 | NUR ---
MS RN CLOSING NOTES PT RESTING IN BED, PT REMAINED STABLE THROUGHOUT SHIFT, NON COMPLAINT TO CARE. PT KEPT CLEAN. SIDE RAILS UP, BED ALARM ON, HOB ELEVATED TO SEMI FOWLERS POSITION, CALL LIGHTS WITHIN REACH. WILL ENDORSE TO NIGHT NURSE
--- NOTE | 2020-03-31 19:30 | NUR ---
MS RN NOTES RECEIVED ON BED A/O X3,NO SOB,AMBULATORY.SALINE LOCK RIGHT AC INTACT AND PATENT.NS WITH 20MEQ INFUSING AT 100ML/HR RATE,SITE PATENT.IV MERREM NOT INFUSED BY DAY NURSE,PATIENT REFUSED,CLAIMED SHE DOESNT FEEL GOOD WITH IT.MD JOHNSON AWARE ACCORDING TO DAY NURSE.CALL LIGHT IN REACH,NEEDS ANTICIPATED.
[2020-03-31 20:00] VITALS: BP 107/65
[2020-03-31] MEDS ORDERED: OLANZAPINE 5 MG/TAB.RAPDIS PO SCH (20:00)
--- NOTE | 2020-03-31 21:00 | NUR ---
MS RN NOTES REFUSED DUE MERREM IV THIS TIME.
--- NOTE | 2020-03-31 21:00 | NUR ---
MS RN NOTES ACCU-CHECK BLOOD SUGAR CHECK 161,COVERED WITH HUMULIN R 4 PER AGGRESSIVE SLIDING SCALE,ALONG WITH LANTUS 20UNITS Q HS.SNACKS PROVIDED AT BEDSIDE.
[2020-03-31] MEDS: INSULIN GLARGINE, 100 UNIT/ML CARTRIDGE SQ SCH (21:13)
[2020-03-31] MEDS: INSULIN REGULAR, HUMAN 100 UNIT/ML 3 ML VIAL SQ PRN (21:15)
--- NOTE | 2020-03-31 21:50 | NUR ---
MS RN NOTES POTASSIUM LEVEL THIS TIME WAS 3.2.DR SCHOFIELD MADE AWARE,NO NEW ORDER NOTED.
[2020-03-31 22:07] LABS: BASOPHILS # (AUTO) 0.1 /CMM (0.0-0.2); BASOPHILS % (AUTO) 1.8 % (0.0-2.0); EOSINOPHILS % (AUTO) 1.5 % (0.0-6.0); HEMATOCRIT 42 % (33-45); HEMOGLOBIN 14.1 g/dL (11.5-14.8); LYMPHOCYTES # (AUTO) 2.6 /CMM (0.8-4.8); LYMPHOCYTES % (AUTO) 54.9 % (20.0-44.0); MEAN CORPUSCULAR HGB CONC 34 g/dl (31.0-36.0); MEAN CORPUSCULAR VOLUME 91 fL (82-100); MONOCYTES # (AUTO) 0.4 /CMM (0.1-1.30); MONOCYTES % (AUTO) 7.7 % (2.0-12.0); NEUTROPHILS # (AUTO) 1.6 /CMM (1.8-8.9); NEUTROPHILS % (AUTO) 34.1 % (43.0-81.0); PLATELET COUNT (AUTO) 297 /CMM (150-450); RED BLOOD CELL COUNT(AUTO) 4.55 MIL/uL (4.0-5.2); WHITE BLOOD COUNT (AUTO) 4.8 K/uL (4.3-11.0)
[2020-03-31 22:21] LABS: CALCIUM, SERUM 8.9 mg/dL (8.5-10.1); CREATININE 0.5 mg/dL (0.6-1.3); PHOSPHORUS 2.6 mg/dL (2.5-4.9); POTASSIUM 3.2 mmol/L (3.5-5.1)
--- NOTE | 2020-03-31 22:30 | NUR ---
MS RN NOTES FEELING IRRITATED ON RIGHT AC SALINE LOCK,REMOVED PER PATIENT REQUEST.
[2020-04-01] MEDS: MORPHINE SULFATE INJ 2 MG/ML DISP.SYRIN IV PRN (00:24)
--- NOTE | 2020-04-01 00:24 | NUR ---
MS RN NOTES PAIN MANAGEMENT C/O GENERALIZED PAIN,8/10 ON PAIN SCALE.MEDICATED WITH MORPHINE 2MG IVP ORDERED.
[2020-04-01] MEDS: BLOOD SUGAR DIAGNOSTIC 1 EACH STRIP IN SCH ×4 (01:30→12:45)
--- NOTE | 2020-04-01 01:30 | NUR ---
MS RN NOTES ACC-CHECK BLOOD SUGAR CHECK 234.HUMULIN R 8 UNITS ADMINISTER SQ PER AGGRESSIVE SLIDING SCALE,SNACKS PROVIDED AT BEDSIDE PER PATIENT REQUEST.
[2020-04-01] MEDS: INSULIN REGULAR, HUMAN 100 UNIT/ML 3 ML VIAL SQ PRN ×3 (01:31→12:51)
--- NOTE | 2020-04-01 04:00 | NUR ---
MS RN NOTES REMAINS AWAKE,TALKING WITH SOMEONE ON HER CELL PHONE
[2020-04-01] MEDS: MEROPENEM 1 G in IV NS 0.9% 100 ML IV SCH ×2 (05:00→13:00)
--- NOTE | 2020-04-01 05:00 | NUR ---
MS RN NOTES ACCU-CHECK BLOOD SUGAR CHECK 144,COVERED WITH HUMULIN R 2 UNITS PER SLIDING SCALE
--- NOTE | 2020-04-01 05:15 | NUR ---
MS RN NOTES NURSE WAS ABOUT TO HUNG MERREM IV SCHEDULED BUT REFUSED,SAYING SHE'S GOING HOME TODAY.
--- NOTE | 2020-04-01 06:34 | NUR ---
MS RN NOTES AWAKE,MOST OF THE NIGHT.REFUSED IV MERREM SCHEDULED.REFUSED BLOOD DRAW THIS MORNING.KE LEVEL 3.2, AWARE,ON NS WITH 20MEQ KCL AT 100ML/HR RATE VIA IV PUMP.VERY NEED THRU OUT SHIFT ASKING FOR LITTLE THINGS.POSSIBLE D/C HOME TODAY.IN NO ACUTE DISTRESS.
--- NOTE | 2020-04-01 07:00 | NUR ---
MS RN OPENING NOTES RECEIVED PT RESTING IN BED, EASILY AWAKEN, AO X3. PT ABLE TO VERBALIZE NEEDS. PER YOUTH [employer]ATION OFFICER NURSE, LLOYD, PT REFUSED AM LABS DRAWN. NO SOB NOTED. NO S/S OF ANY ACUTE DISTRESS NOTED. RESPIRATIONS ARE EVEN AND UNLABORED WITH EQUAL RISE AND FALL IN CHEST. IV ACCESS TO RFA G#22, INTACT AND PATENT. BED IN LOWEST LOCKED, SIDE RAILS UP, BED ALARM ON, HOB ELEVATED TO SEMI FOWLERS POSITION, CALL LIGHTS WITHIN REACH. WILL CONTINUE TO MONITOR
[2020-04-01] MEDS: INSULIN LISPRO/ASPART 100 UNIT/ML CARTRIDGE SQ SCH ×3 (07:30→11:38)
[2020-04-01 08:00] VITALS: BP 130/70
--- NOTE | 2020-04-01 08:00 | NUR ---
PT REFUSED ACCUCHEK THIS MORNING AND REFUSED ADMINISTRATION OF INSULIN LISPRO 5U, SQ AC. EDUCATION ON RISK AND BENEFITS PROVIDED. WILL CONTINUE TO MONITOR
--- NOTE | 2020-04-01 09:02 | NUR ---
PT GLUGOSE TEST CHECKED AT 0856, BS 176. INSULIN LISPRO 5 UNITS SQ AC ADMINISTERED PER ORDER. WILL CONTINUE TO MONITOR
[2020-04-01] MEDS ORDERED: BLOO1EAC70 MC (09:41)
[2020-04-01] MEDS ORDERED: INSU100C SQ (09:41)
[2020-04-01] MEDS ORDERED: [UNRECOGNIZED DRUG - CODE] MC (09:41)
[2020-04-01] MEDS ORDERED: INSU100V7 SQ (09:41)
[2020-04-01] MEDS ORDERED: CEFI200S PO (09:41)
[2020-04-01] MEDS ORDERED: LANC1COM7 (09:41)
[2020-04-01] MEDS ORDERED: IBUP-1953 PO (09:41)
--- NOTE | 2020-04-01 10:27 | NUR ---
Social service consult requested by MD for mental health resources. Per MD notes and chart review, pt is a 24-year-old female who presented to [facility] for evaluation of fever and right flank pain and found to have pyelonephritis. She also was hyperglycemic and is a juvenile diabetic. However she is unfamiliar with any medications that she takes with exception of metformin. Her knowledge of her disease process is significantly lacking. Pt was psychotic and uncooperative for most part of her hospitalization. FIRE LIEUTENANT MARINE met with the pt who was sitting in a chair outside her room. SW introduced self and purpose of the visit. Pt is alert and oriented x 4. Pt is a poor historian and not very forthcoming with information. Pt did not disclose if she has a mental health illness and stated, " why does everybody asks me that." Pt did state she was receiving mental health services and attending group therapy in [place] but is interested in services in [facility]. FIRE LIEUTENANT MARINE provided pt with contact information to [facility] caters to [employer] [facility]. Pt accepted the resources and was appreciative. FIRE LIEUTENANT MARINE provided active listening and supportive counseling. Pt will be discharging today and going home with her family.
[2020-04-01] MEDS: PANTOPRAZOLE 40 MG VIAL IV SCH (11:40)
[2020-04-01] MEDS: LORAZEPAM INJ 2 MG/ML VIAL IV PRN (12:26)
--- NOTE | 2020-04-01 12:27 | NUR ---
PT C/O ANXIETY AND REQUESTED ATIVAN. ATIVAN 2MG IV PRN Q12HRS. ADMINISTERED PER PROTOCOL. WILL CONTINUE TO MONITOR
--- NOTE | 2020-04-01 13:31 | NUR ---
PT REFUSED MERREM 1G IV Q8HRS, EDUCATION ON BENEFITS AND RISKS PROVIDED. WILL CONTINUE TO MONITOR
--- NOTE | 2020-04-01 14:20 | NUR ---
MS RESPIRATORY THERAPY TECHNICIAN NOTES PT DISCHARGED TO HOME AT THIS TIME. PT IS STABLE. VS STABLE. PT EDUCATION PROVIDED. PT VERBALIZED UNDERSTANDING TO BENIFITS, RISK AND COMPLIANCE TO DISCHARGE TEACHINGS. ALL CARE, MEDICATIONS AND NEEDS ADMINISTERED PER ORDER. IV ACCESS REMOVED, CLEAN AND DRESSED. NO SIGNS OF INFILTRATION OR BLEEDING NOTED. ALL BELONGINGS ACCOUNTED FOR AND DOCUMENTED IN CHART. PT ACCOMPANIED TO LOBBY BY VINICIUS HAMILTON. PT PICKED UP BY [facility] TO HOME.
== END 2020-04-01 14:25 | disposition home or self-care (01) | DRG 463 ==
LOC: MED 15:47
PROVIDERS: ADMIT Nurse Practitioner Acute Care; ATTEND Nurse Practitioner Acute Care
DX: N10 Acute pyelonephritis (principal); K31.84 Gastroparesis; E10.65 Type 1 diabetes mellitus with hyperglycemia; F05 Delirium due to known physiological condition; E10.43 Type 1 diabetes mellitus with diabetic autonomic (poly)neuropathy; F25.9 Schizoaffective disorder, unspecified; E87.6 Hypokalemia; F60.9 Personality disorder, unspecified; Z91.19 Patient's noncompliance with other medical treatment and regimen; F12.90 Cannabis use, unspecified, uncomplicated; R11.15 Cyclical vomiting syndrome unrelated to migraine
CPT/HCPCS: 36415; 80048-TC; 82962-TC; 83735-TC; 84100-TC; 84702-TC; 85025-TC; C9113; G0378; J0696; J1630; J1815; J1885; J2060; J2185; J2270; J2405; J3475; J3480; J3490; J7030; J7050; J7060

== ENCOUNTER 2020-08-19 06:32 | Emergency (ER) | payer MEDICAID ==
[~2020-08-19] VITALS: Ht 170.2 cm; Wt 49.9 kg
[~2020-08-19 06:32] MED LIST: BLOO1EAC70 MC; CEFI200S PO; IBUP-1953 PO; INSU100C SQ; INSU100V7 SQ; LANC1COM7; METF-881 PO; [UNRECOGNIZED DRUG - CODE] MC
[2020-08-19] MEDS: IV NS 0.9% 1,000 ML BAG IV ONE ×2 (07:00→08:49)
[2020-08-19] MEDS ORDERED: ONDANSETRON HCL/PF 4 MG/2 ML VIAL ONE (07:02)
[2020-08-19] MEDS: ONDANSETRON HCL/PF 4 MG/2 ML VIAL IVP ONE (07:06)
--- NOTE | 2020-08-19 07:06 | NUR ---
PT AAOX4. BIBFAMILY C/O VOMITING X2-4 DAYS. PER FAMILY SHE HAS SOME TYPE OF KIDNEY INFECTION. SHE WAS SEEN AT [facility] BUT LEFT. HAS BEEN VOMITING X4 DAYS, NOT ABLE TO EAT ANYTHING. BG 358. AWARE.
--- NOTE | 2020-08-19 07:09 | NUR ---
UNABLE TO PROVIDE URINE.
--- NOTE | 2020-08-19 07:14 | NUR ---
INTERNATIONAL MANAGER AT BEDSIDE FOR LABS
[2020-08-19 07:33] LABS: BASOPHILS % (AUTO) 0.7 % (0.0-2.0); EOSINOPHILS % (AUTO) 0.2 % (0.0-6.0); HEMATOCRIT 47 % (33-45); HEMOGLOBIN 16.1 g/dL (11.5-14.8); LYMPHOCYTES # (AUTO) 1.4 /CMM (0.8-4.8); LYMPHOCYTES % (AUTO) 20.2 % (20.0-44.0); MEAN CORPUSCULAR HGB CONC 34 g/dl (31.0-36.0); MEAN CORPUSCULAR VOLUME 91 fL (82-100); MONOCYTES # (AUTO) 0.4 /CMM (0.1-1.30); MONOCYTES % (AUTO) 5.6 % (2.0-12.0); NEUTROPHILS # (AUTO) 5.1 /CMM (1.8-8.9); NEUTROPHILS % (AUTO) 73.3 % (43.0-81.0); PLATELET COUNT (AUTO) 260 /CMM (150-450); RED BLOOD CELL COUNT(AUTO) 5.15 MIL/uL (4.0-5.2); WHITE BLOOD COUNT (AUTO) 6.9 K/uL (4.3-11.0)
--- NOTE | 2020-08-19 07:47 | NUR ---
PT SLEEPING COMFORTABL IN BED. EASILY AROUSABLE. NO CARDIAC OR RESP DISTRESS NOTED.
[2020-08-19 07:56] LABS: ALBUMIN 4.5 g/dL (3.4-5.0); BILIRUBIN,DIRECT 0.2 mg/dL (0.0-0.2); BILIRUBIN,TOTAL 0.7 mg/dL (0.2-1.0); CALCIUM, SERUM 9.1 mg/dL (8.5-10.1); CREATININE 0.7 mg/dL (0.6-1.3); POTASSIUM 3.5 mmol/L (3.5-5.1); TOTAL PROTEIN, SERUM 9.2 g/dL (6.4-8.2)
--- NOTE | 2020-08-19 09:20 | NUR ---
BS RE-CHECKED 314. AWARE.
--- NOTE | 2020-08-19 09:24 | NUR ---
URINE COLLECTED FROM PT. SENT TO LAB
[2020-08-19] MEDS ORDERED: INSULIN REGULAR, HUMAN 100 UNIT/ML 10 ML VIAL ONE (09:37)
[2020-08-19] MEDS: INSULIN REGULAR, HUMAN 100 UNIT/ML 10 ML VIAL SQ ONE (09:40)
[2020-08-19 09:48] LABS: APPEARANCE,URINE Clear (CLEAR); BILIRUBIN,URINE SMALL (NEGATIVE); BLOOD, URINE Trace-intact Ery/uL (NEGATIVE); COLOR,URINE Yellow (YELLOW); KETONES,URINE >=160 (NEGATIVE); LEUKOCYTE ESTERASE ,URINE Negative (NEGATIVE); NITRITE, URINE Negative (NEGATIVE); PH,URINE 5.5 (5.0-8.0); PROTEIN,URINE 100 mg/dl (NEGATIVE); UGLUCOSE 500 MG/DL mg/dL (NEGATIVE); UROBILINOGEN,URINE 0.2 EU/dL (0.2)
[2020-08-19 09:49] LABS: BACTERIA,URINE Few /HPF (None Seen); SQUAMOUS EPITHELIAL CELL,UR Few /HPF (None Seen)
--- NOTE | 2020-08-19 10:40 | NUR ---
D/C HOME Patient discharged to home in stable condition. Written and verbal after care instructions given. Patient verbalizes understanding of instruction.IV removed. Catheter intact and site benign. Pressure and 4x4 applied to site. No bleeding noted.
[2020-08-19 11:03] VITALS: BP 121/82
== END 2020-08-19 10:40 | disposition home or self-care (01) ==
LOC: ER 06:32
DX: R11.10 Vomiting, unspecified (principal); E11.65 Type 2 diabetes mellitus with hyperglycemia; Z91.040 Latex allergy status; Z79.4 Long term (current) use of insulin; Z79.899 Other long term (current) drug therapy
CPT/HCPCS: 36415; 80048; 80076; 81001; 82962; 83605; 83690; 84702; 85025; 87040 ×2; 87086; 96361; 96372; 96374; 99284; J1815; J2405; J7030 ×2; 81000-TC